=== PATIENT | female | born 1995 | race Caucasian/White ===

== ENCOUNTER 2024-12-26 11:35 | Emergency (ER) | payer MEDICAID ==
[~2024-12-26] VITALS: Ht 165.1 cm; Wt 54.4 kg
[2024-12-26] MEDS ORDERED: LIDOCAINE HCL 2% 20 ML VIAL ONE (11:42)
[2024-12-26] MEDS ORDERED: HYDR50TA61 PO (11:51)
[2024-12-26] MEDS ORDERED: TDAP DIPH,PERTUSS,TET VAC/PF 0.5 ML DISP.SYRIN IM ONE (12:00)
[2024-12-26] MEDS: LIDOCAINE HCL 2% 20 ML VIAL TP ONE (12:20)
[2024-12-26] MEDS ORDERED: BENZ0.5T43 PO (12:20)
[2024-12-26] MEDS ORDERED: TRAZ-252 PO (12:20)
[2024-12-26] MEDS ORDERED: RISP2TAB85 PO (12:20)
[2024-12-26] MEDS: TDAP DIPH,PERTUSS,TET VAC/PF 0.5 ML DISP.SYRIN IM ONE (12:20)
[2024-12-26] MEDS ORDERED: CARI1.5C PO (12:20)
[2024-12-26 12:27] LABS: BASOPHILS % (AUTO) 0.1 % (0.0-2.0); EOSINOPHILS % (AUTO) 0.1 % (0.0-7.0); HEMATOCRIT 44.2 % (31.2-41.9); LYMPHOCYTES # (AUTO) 0.8 K/uL (0.8-4.8); LYMPHOCYTES % (AUTO) 9.5 % (20.5-51.5); MEAN CORPUSCULAR HEMOGLOBIN 30.6 uug (24.7-32.8); MEAN CORPUSCULAR HGB CONC 34 g/dL (32.3-35.6); MEAN CORPUSCULAR VOLUME 89.8 fL (75.5-95.3); MONOCYTES # (AUTO) 0.4 K/uL (0.1-1.30); MONOCYTES % (AUTO) 4.7 % (0.0-11.0); NEUTROPHILS # (AUTO) 7.3 K/uL (1.8-8.9); NEUTROPHILS % (AUTO) 85.6 % (38.5-71.5); PLATELET COUNT (AUTO) 330 K/uL (179-408); RED BLOOD CELL COUNT(AUTO) 4.92 MIL/uL (3.63-4.92); RED CELL DISTRIBUTION WIDTH 12.6 % (12.3-17.7); WHITE BLOOD COUNT (AUTO) 8.6 K/uL (3.8-11.8)
[2024-12-26 12:36] LABS: DIFFERENTIAL COMMENT 1
[2024-12-26 12:41] LABS: CALCIUM 9.3 mg/dL (8.5-10.1); CARBON DIOXIDE 25 mmol/L (21-32); CHLORIDE 104 mmol/L (98-107); CREATININE 0.6 mg/dL (0.6-1.3); GLUCOSE 110 mg/dL (74-106); POTASSIUM 3.9 mmol/L (3.5-5.1); SODIUM SERUM 140 mmol/L (136-145); UREA NITROGEN, BLOOD 9 mg/dL (7-18)
[2024-12-26 12:45] LABS: ETHANOL < 3 MG/DL (0-10)
[2024-12-26 12:46] LABS: ACETAMINOPHEN < 10.0 ug/mL (10-30); ALANINE AMINOTRANSFERASE 26 U/L (14-59); ALBUMIN 3.9 g/dL (3.4-5.0); ALKALINE PHOSPHATASE 139 U/L (50-136); ASPARTATE AMINOTRANSFERASE 21 U/L (15-37); BILIRUBIN,DIRECT 0.1 mg/dL (0.0-0.2); BILIRUBIN,TOTAL 0.5 mg/dL (0.2-1.0); TOTAL PROTEIN, SERUM 7.8 g/dL (6.4-8.2)
[2024-12-26 12:56] LABS: *BILIRUBIN,URIN 1+ (NEGATIVE); *BLOOD, URINE 1+ (NEGATIVE); *CLARITY,URINE CLEAR (CLEAR); *COLOR,URINE YELLOW (YELLOW); *KETONES,URINE 2+ (NEGATIVE); *PROTEIN,URINE 2+ (NEGATIVE); *UROBILINOGEN,URINE 0.2 E.U./dl (NORMAL); LEUKOCYTE ESTERASE ,URINE NEGATIVE (NEGATIVE); NITRITE, URINE NEGATIVE (NEGATIVE); PH,URINE 5.5 (5.0-8.0); UGLUCOSE NEGATIVE (NEGATIVE)
[2024-12-26 12:58] LABS: BACTERIA,URINE FEW /HPF (NONE SEEN); RBC,URINE 20-50 /HPF (0-3); SQUAMOUS EPITHELIAL CELL,UR FEW /HPF (NONE SEEN); URINE AMORPHOUS URATE FEW /HPF; WBC,URINE 0-3 /HPF (0-3)
[2024-12-26 13:05] LABS: *AMPHETAMINE, URINE NEGATIVE (NEGATIVE); *BARBITURATE, URINE NEGATIVE (NEGATIVE); *BENZODIAZEPINE, URINE NEGATIVE (NEGATIVE); *CANNABINOID, URINE NEGATIVE (NEGATIVE); *COCCAINE, URINE NEGATIVE (NEGATIVE); *OPIATE, URINE NEGATIVE (NEGATIVE); *PHENCYCLIDINE SCREEN,URINE NEGATIVE (NEGATIVE); FENTANYL, URINE NEGATIVE (NEGATIVE)
[2024-12-26] MEDS ORDERED: LORAZEPAM 0.5 MG TABLET ONE (15:10)
[2024-12-26] MEDS: LORAZEPAM 0.5 MG TABLET PO ONE ×2 (15:17→16:47)
[2024-12-26] MEDS ORDERED: LORAZEPAM 1 MG TABLET ONE (16:38)
[2024-12-26 18:00] VITALS: O2SAT 98
== END 2024-12-26 18:14 | disposition home or self-care (01) ==
LOC: ER 11:35
DX: S61.512A Laceration without foreign body of left wrist, initial encounter (principal); T14.91XA Suicide attempt, initial encounter; F20.9 Schizophrenia, unspecified; Z79.899 Other long term (current) drug therapy; Z20.822 Contact with and (suspected) exposure to COVID-19; X78.1XXA Intentional self-harm by knife, initial encounter; Y93.89 Activity, other specified; Y92.89 Other specified places as the place of occurrence of the external cause; Y99.8 Other external cause status
CPT/HCPCS: 12002; 36415; 80048; 80076; 80299; 80307; 80320; 81001; 82607; 85025; 87426; 90471; 90715; 99285; J3490; A4606; A4663; G0480

== ENCOUNTER 2025-01-03 17:16 | Emergency (ER) | payer MEDICAID ==
[~2025-01-03] VITALS: Ht 165.1 cm; Wt 54.4 kg
[~2025-01-03 17:16] MED LIST: BENZ0.5T43 PO; CARI1.5C PO; HYDR50TA61 PO; RISP2TAB85 PO; TRAZ-252 PO
[2025-01-03] MEDS ORDERED: NEOMY/BACITRA/POLYMYXIN B OINT UD PACKET TP ONE (17:38)
[2025-01-03] MEDS: NEOMY/BACITRA/POLYMYXIN B OINT UD PACKET TP ONE (17:40)
[2025-01-03 17:46] VITALS: BP 120/68; O2SAT 98
== END 2025-01-03 17:46 | disposition home or self-care (01) ==
LOC: ER 17:28
DX: S61.512D Laceration without foreign body of left wrist, subsequent encounter (principal); F20.9 Schizophrenia, unspecified; Z79.899 Other long term (current) drug therapy; Z91.52 Personal history of nonsuicidal self-harm; Z48.02 Encounter for removal of sutures; X58.XXXD Exposure to other specified factors, subsequent encounter
CPT/HCPCS: A4606; A4663

== ENCOUNTER 2025-05-02 22:10 | Emergency (ER) | payer MEDICAID ==
[~2025-05-02] VITALS: Ht 152.4 cm; Wt 72.6 kg
[2025-05-02] MEDS ORDERED: LORAZEPAM 1 MG TABLET ONE (23:38)
[2025-05-02] MEDS: LORAZEPAM 0.5 MG TABLET PO ONE (23:39)
[2025-05-03 00:45] VITALS: BP 125/80
[2025-05-03] MEDS ORDERED: HALOPERIDOL 0.5 MG TABLET ONE (01:11)
[2025-05-03] MEDS: HALOPERIDOL 0.5 MG TABLET PO ONE (01:16)
[2025-05-03 03:19] VITALS: BP_SYST 122; O2SAT 99
== END 2025-05-03 02:08 | disposition home or self-care (01) ==
LOC: ER 22:16
DX: F41.0 Panic disorder [episodic paroxysmal anxiety] (principal); F41.9 Anxiety disorder, unspecified; F20.9 Schizophrenia, unspecified; F32.A Depression, unspecified; R07.89 Other chest pain; R10.9 Unspecified abdominal pain; R51.9 Headache, unspecified; Z79.899 Other long term (current) drug therapy
CPT/HCPCS: A4606; A4663

== ENCOUNTER 2025-05-10 09:30 | Emergency (ER) | payer MEDICAID ==
[~2025-05-10] VITALS: Ht 152.4 cm; Wt 72.6 kg
[2025-05-10] MEDS ORDERED: LORAZEPAM 2 MG/1 ML VIAL ONE ×2 (09:54→12:07)
[2025-05-10] MEDS: LORAZEPAM 2 MG/1 ML VIAL IM ONE ×2 (09:59→12:11)
[2025-05-10 10:16] LABS: PLATELET COUNT (AUTO) 244 K/uL (179-408); RED BLOOD CELL COUNT(AUTO) 4.65 MIL/uL (3.63-4.92); RED CELL DISTRIBUTION WIDTH 12.8 % (12.3-17.7); WHITE BLOOD COUNT (AUTO) 5.3 K/uL (3.8-11.8)
[2025-05-10 10:38] LABS: ASPARTATE AMINOTRANSFERASE 14 U/L (15-37); CREATININE 0.6 mg/dL (0.6-1.3); SODIUM SERUM 141 mmol/L (136-145); TOTAL PROTEIN, SERUM 7.4 g/dL (6.4-8.2); UREA NITROGEN, BLOOD 11 mg/dL (7-18)
[2025-05-10 10:40] LABS: ETHANOL < 3 MG/DL (0-10)
[2025-05-10 10:45] VITALS: BP 120/70
[2025-05-10] MEDS ORDERED: LORA-259 PO (12:06)
[2025-05-10 12:21] LABS: *BILIRUBIN,URIN NEGATIVE (NEGATIVE); *BLOOD, URINE NEGATIVE (NEGATIVE); *CLARITY,URINE CLEAR (CLEAR); *COLOR,URINE YELLOW (YELLOW); *KETONES,URINE NEGATIVE (NEGATIVE); *PROTEIN,URINE NEGATIVE (NEGATIVE); *UROBILINOGEN,URINE 0.2 E.U./dl (NORMAL); LEUKOCYTE ESTERASE ,URINE TRACE (NEGATIVE); NITRITE, URINE NEGATIVE (NEGATIVE); UGLUCOSE NEGATIVE (NEGATIVE)
[2025-05-10 12:31] LABS: SQUAMOUS EPITHELIAL CELL,UR FEW /HPF (NONE SEEN)
[2025-05-10 12:34] LABS: *URINE HCG, QUAL NEGATIVE (NEGATIVE)
[2025-05-10 12:37] LABS: *AMPHETAMINE, URINE NEGATIVE (NEGATIVE); *BARBITURATE, URINE NEGATIVE (NEGATIVE); *BENZODIAZEPINE, URINE NEGATIVE (NEGATIVE); *CANNABINOID, URINE NEGATIVE (NEGATIVE); *COCCAINE, URINE NEGATIVE (NEGATIVE); *OPIATE, URINE NEGATIVE (NEGATIVE); *PHENCYCLIDINE SCREEN,URINE NEGATIVE (NEGATIVE); FENTANYL, URINE NEGATIVE (NEGATIVE)
[2025-05-10 13:18] VITALS: BP 112/59; O2SAT 98
== END 2025-05-10 12:45 | disposition home or self-care (01) ==
LOC: ER 09:30
DX: F41.9 Anxiety disorder, unspecified (principal); F32.A Depression, unspecified; F20.9 Schizophrenia, unspecified; Z79.899 Other long term (current) drug therapy; Z20.822 Contact with and (suspected) exposure to COVID-19
CPT/HCPCS: 80076; 80048; 81001; 84703; 80178; 85025; 87426; 87086; 36415; 99284; 96372 ×2; 80299; 80320; 80307; 98960; J2060 ×2; 70030-TC; A4606; A4663; G0480